=== PATIENT | male | born 1985 | race Caucasian/White ===

== ENCOUNTER → 2016-10-04 | Outpatient (CLI) | payer OTHER ==
[~2016-10-04] VITALS: Ht 180.3 cm; Wt 93.9 kg
[~2016-10-04] MED LIST: GLYCOPYRROLATE INJ 0.2 MG/ML 2 ML VIAL As Ordered ONE; LIDOCAINE 2% INJ 100 MG/5 ML SDV (FOR ANES.) As Ordered ONE; NS 1,000 ML IV SCH; PROPOFOL 200 MG/20 ML VIAL As Ordered ONE; no medications
--- NOTE | 2016-10-04 10:54 | ROOR ---
Patient Name: Kelby Herrmann Procedure Date: 10/04/2016 10:31 AM Date of : 1985 Age: 31 Room: [facility] Gender: Male Note Status: Finalized Procedure: Colonoscopy Indications: Screening in patient at increased risk: Family history of 1st-degree relative with colorectal cancer before age 60 years Providers: DO Benigno Martinez MD: LACI RAUSCH MD Requesting Provider: Medicines: Propofol per Anesthesia Complications: No immediate complications. Procedure: Pre-Anesthesia Assessment: - Prior to the procedure, a History and Physical was performed, and patient medications and allergies were reviewed. The patient is competent. The risks and benefits of the procedure and the sedation options and risks were discussed with the patient. All questions were answered and informed consent was obtained. Patient identification and proposed procedure were verified by the physician, the nurse, the anesthesiologist and the radio electronics technician in the endoscopy suite. Mental Status Examination: alert and oriented. Airway Examination: normal oropharyngeal airway and neck mobility. Respiratory Examination: clear to auscultation. CV Examination: normal. Prophylactic Antibiotics: The patient does not require prophylactic antibiotics. Prior Anticoagulants: The patient has taken no previous anticoagulant or antiplatelet agents. ASA Grade Assessment: I - A normal, healthy patient. After reviewing the risks and benefits, the patient was deemed in satisfactory condition to undergo the procedure. The anesthesia plan was to use monitored anesthesia care (MAC). Immediately prior to administration of medications, the patient was re-assessed for adequacy to receive sedatives. The heart rate, respiratory rate, oxygen saturations, blood pressure, adequacy of pulmonary ventilation, and response to care were monitored throughout the procedure. The physical status of the patient was re-assessed after the procedure. The Colonoscope was introduced through the anus and advanced to the cecum, identified by the appendiceal orifice, ileocecal valve and palpation. The colonoscopy was performed without difficulty. The patient tolerated the procedure well. Findings: The perianal exam findings include non-thrombosed internal hemorrhoids and internal hemorrhoids (Grade I). The exam was otherwise without abnormality on direct and retroflexion views. Impression: - Non-thrombosed internal hemorrhoids and internal hemorrhoids (Grade I) found on perianal exam. - The examination was otherwise normal on direct and retroflexion views. - No specimens collected. Recommendation: - Patient has a contact number available for emergencies. The signs and symptoms of potential delayed complications were discussed with the patient. Return to normal activities tomorrow. Written discharge instructions were provided to the patient. - Return to my office PRN. - Repeat colonoscopy in 3 - 5 years for screening purposes. Martín Alvarado DO 10/04/2016 10:53:39 AM This report has been signed electronically. Number of Addenda: 0 Note Initiated On: 10/04/2016 10:31 AM Estimated Blood Loss: Estimated blood loss: none.
[2016-10-04 11:20] VITALS: BP 159/93
== END ==
LOC: M OPP 09:38
PROVIDERS: ATTEND Surgery
DX: Z12.11 Encounter for screening for malignant neoplasm of colon (principal); K64.0 First degree hemorrhoids; Z80.0 Family history of malignant neoplasm of digestive organs; Z80.8 Family history of malignant neoplasm of other organs or systems; Z86.79 Personal history of other diseases of the circulatory system; F17.220 Nicotine dependence, chewing tobacco, uncomplicated
CPT/HCPCS: 99156; G0105